=== PATIENT | female | born 1985 | race Hispanic/Latino ===

== ENCOUNTER 2017-02-05 17:15 | Inpatient (IN) | payer OTHER ==
[2017-02-13] MEDS ORDERED: Midazolam HCl 2 mg/2 ml Vial ONE ×2 (07:59→10:03)
[2017-02-13] MEDS ORDERED: Heparin 5,000 UNITS/ML VIAL ONE (08:00)
[2017-02-13] MEDS ORDERED: CEFAZOLIN/Water 2 GM/20 ML SYRINGE ONE (08:00)
[2017-02-13] MEDS ORDERED: Lidocaine 2% w/Epinephrine 1:200K 20 ML VIAL ONE (08:48)
[2017-02-13] MEDS ORDERED: Bupivacaine PF 0.5% 30 ML VIAL ONE (08:48)
[2017-02-13] MEDS ORDERED: Fentanyl 100 MCG/2 ML VIAL ONE (10:03)
[2017-02-13] MEDS ORDERED: Lidocaine 1% PF 5 ML VIAL ONE (10:30)
[2017-02-13] MEDS ORDERED: Propofol 200 MG/20 ML VIAL ONE (10:30)
[2017-02-13] MEDS ORDERED: Glycopyrrolate 0.2 MG/ML 5 ML SYRINGE ONE (10:30)
[2017-02-13] MEDS ORDERED: diphenhydrAMINE 50 MG/ML VIAL ONE (10:30)
[2017-02-13] MEDS ORDERED: Dexamethasone 20 MG/5 ML VIAL ONE (10:30)
[2017-02-13] MEDS ORDERED: Metoclopramide HCl 10 MG/2 ML VIAL ONE (10:30)
[2017-02-13] MEDS ORDERED: Ondansetron HCl/PF 4 MG/2 ML Vial ONE (10:30)
[2017-02-13] MEDS ORDERED: diphenhydrAMINE 50 MG/ML VIAL IVP PRN ×2 (12:09→13:27)
[2017-02-13] MEDS ORDERED: Ketorolac Tromethamine 30 MG/ML VIAL IVP PRN (12:09)
[2017-02-13] MEDS ORDERED: Zolpidem Tartrate 5 MG TAB PO PRN (12:09)
[2017-02-13] MEDS ORDERED: diphenhydrAMINE 25 MG CAP PO PRN (12:09)
[2017-02-13] MEDS ORDERED: Fentanyl 250 MCG/5 ML VIAL ONE (12:09)
[2017-02-13] MEDS ORDERED: Ondansetron HCl/PF 4 MG/2 ML Vial IVP PRN ×3 (12:09→13:27)
[2017-02-13] MEDS ORDERED: Naloxone HCl 0.4 mg/ml Vial IV PRN (12:09)
[2017-02-13] MEDS ORDERED: Promethazine HCl 25 MG/ML VIAL SLOW IVP PRN (12:09)
[2017-02-13] MEDS ORDERED: diphenhydrAMINE 50 MG/ML VIAL IM PRN (12:09)
[2017-02-13] MEDS ORDERED: Fentanyl 5000 MCG/250 ML CADD IVPB PRN (12:09)
[2017-02-13] MEDS ORDERED: Promethazine HCl 25 MG/ML VIAL IM PRN ×3 (12:09→13:27)
[2017-02-13] MEDS ORDERED: Communication Order-Pharmacy FS SCH (12:15)
[2017-02-13] MEDS ORDERED: D5 1/2 NS w/20 mEq KCL 1,000 ML ONE (12:17)
--- NOTE | 2017-02-13 12:20 | EKG ---
Test Reason : PREOP Blood Pressure : / mmHG Vent. Rate : 074 BPM Atrial Rate : 074 BPM P-R Int : 136 ms QRS Dur : 094 ms QT Int : 362 ms P-R-T Axes : 043 -03 014 degrees QTc Int : 401 ms Normal sinus rhythm with sinus arrhythmia Normal ECG No previous ECGs available Confirmed by DR. Garrett GRANT ([id number]) on 02/13/2017 12:19:55 PM Referred By: GABRIELA Confirmed By:DR. Garrett GRANT
[2017-02-13] MEDS ORDERED: Dextrose 5% in Water 1,000 ML IV PRN (13:27)
[2017-02-13] MEDS ORDERED: Hydrocodone-Acetamin 15 ML UDCUP PO PRN (13:27)
[2017-02-13] MEDS ORDERED: Dextrose 50% Abboject 50 ML SYRINGE SLOW IVP PRN (13:27)
[2017-02-13] MEDS ORDERED: hydrALAZINE 20 MG/ML VIAL SLOW IVP PRN (13:27)
[2017-02-13] MEDS ORDERED: Acetaminophen 1,000 MG in Premix Bag 1 BAG IVPB SCH (14:00)
[2017-02-13 16:21] VITALS: BMI 36.3
[2017-02-13] MEDS: Acetaminophen 1,000 MG in Premix Bag 1 BAG IVPB SCH (18:10)
[2017-02-13] MEDS: D5 1/2 NS w/20 mEq KCL 1,000 ML IV SCH ×2 (18:16→20:52)
[2017-02-13] MEDS ORDERED: Enoxaparin Sodium 40 MG/0.4 ML SYRINGE SC SCH (21:00)
[2017-02-14] MEDS: Acetaminophen 1,000 MG in Premix Bag 1 BAG IVPB SCH ×2 (00:02→05:13)
--- OUTSIDE RECORDS SUMMARY | 2017-02-14 00:54 | XMS | Clinical Summary ---
:1985 Author Organization [facility] Address [address] [place] [address] Phone Care Team Providers Name Role Phone , Primary Care Provider Unavailable Allergies Not on File Current Medications Not on file Active Problems Not on file Social History Tobacco Use Types Packs/Day Years Used Date Never Assessed Sex Assigned at Date Recorded Not on file Last Filed Vital Signs Not on file Plan of Treatment Not on file Results Not on filefrom Last 3 Months
[2017-02-14] MEDS: D5 1/2 NS w/20 mEq KCL 1,000 ML IV SCH ×2 (05:14→13:47)
[2017-02-14 05:32] LABS: #Lymphocytes 1.4 thou/uL (1.20-3.40); #Monocytes 0.6 thou/uL (0.11-0.59); #Neutrophils 6.3 thou/uL (1.40-6.50); %Basophils 0.3 % (0.0-1.0); %Eosinophils 0.1 % (0.0-10.0); %Lymphocytes 16.4 % (21.0-51.0); %Monocytes 6.8 % (0.0-10.0); Red Blood Cell (RBC) Count 4.94 mill/uL (4.20-5.40); White Blood Cell (WBC) Count 8.3 thou/uL (4.8-10.8)
[2017-02-14 05:54] LABS: Anion Gap 10 mmol/L (10-20); BUN (Urea Nitrogen) 7 mg/dL (7.0-18.7); Calc. Creatinine Clearance 161 mL/min (70-130); Calcium 9.4 mg/dL (7.8-10.44); Carbon Dioxide 26 mmol/L (22-29); Chloride 106 mmol/L (98-107); Estimated GFR-MDRD Greater than 90
[2017-02-14] MEDS ORDERED: Pantoprazole 40 MG VIAL IVP SCH (09:00)
--- NOTE | 2017-02-14 10:01 | RAD ---
LIMITED UPPER GI WITH 15 ML GASTROGRAFIN: Date: 02/14/17 FINDINGS: Recent vertical sleeve gastrectomy. FINDINGS: There is prompt passage of contrast from the esophagus into the stomach and duodenum. No contrast ex travasation is seen. IMPRESSION: No evidence of obstruction or leak. POS: [facility]
[2017-02-14 11:11] VITALS: BP 120/84; TEMP 98.4
[2017-02-14] MEDS ORDERED: Ondansetron ODT 4 MG TAB PO PRN (14:20)
--- NOTE | 2017-02-17 13:13 | OP ---
DATE OF PROCEDURE: 02/13/2017 PREOPERATIVE DIAGNOSIS: Morbid obesity with a BMI of 37. POSTOPERATIVE DIAGNOSIS: Morbid obesity with a BMI of 37. PROCEDURES PERFORMED: 1. Laparoscopic sleeve gastrectomy. 2. Esophagogastroduodenoscopy with [place] staple line reinforcements and 38 [place] bougie. SURGEON: Dr. Medley. ANESTHESIA: General. ESTIMATED BLOOD LOSS: 20 mL COMPLICATIONS: None. SPECIMEN: Stomach. FINDINGS: Normal postoperative esophagogastroduodenoscopy. INDICATION: The patient is a 32-year-old female who presents for weight loss surgery. She has atte nded our preoperative seminar and has had her preoperative education. She understands risks, benefi ts, alternatives to surgery as well as alternatives to weight loss procedures. She gives consent. TECHNIQUE: The patient was taken to the operating room and placed on supine table. After general a nesthetic was obtained, arms and legs were double strapped to bariatric table. Her abdomen were sha kristin, prepped and draped in a sterile fashion. OG tube had been used to decompress the stomach. Lef t subcostal 5-mm Optiview trocar was placed in the usual fashion without injury and High-flow pneumo peritoneum was obtained. Left and right abdominal 12-mm ports and a right subcostal 5-mm port were placed under direct visualization. The patient was placed in reverse Trendelenburg position. Natha nson was brought in through a 5 mm incision made at the xiphoid and used to raise the liver off the GE junction. There is no hiatal hernia. The short gastrics were taken down from a distance of 5 cm proximal to the pylorus all the way up to the angle of His and left cindy of the diaphragm. The pos terior fundus, left cindy and angle of His is completely dissected as are all posterior gastric adhes ions. OG tube was removed and a 38 [place] bougie brought in and its tip left in the antrum of the s tomach. Multiple loads of an [place] stapling device with [place] staple line reinforcements used to f orm the sleeve. The first was fired up at a distance of 6 cm proximal to the pylorus angled up towa rds the incisura. Multiple loads were then fired up along the bougie, and the stomach was completel y transected at the angle of His. The stomach was removed from left abdominal incision. This fasci al defect was closed using GraNee needle and 0 Vicryl tie. EGD scope was passed into the esophagus, stomach to the level of the duodenum without obstruction. There was no stricture at the incisura. There was no air leakage through the staple line. There was no bleeding internally. EGD scope was used to decompress the stomach, was pulled and removed. The Doni was removed under direct vis ualization without bleeding. All port are removed under direct visualization without bleeding. Pne umoperitoneum was let down. Vicryl was used to close the fascial defect from the left abdominal inc isions. All incisions were irrigated and closed using 4-0 Monocryl and Dermabond. The patient was en route to recovery in stable condition. All instrument counts, needle counts, and lap counts were correct.
== END 2017-02-14 15:21 | disposition home or self-care (01) | DRG 621 ==
LOC: SURG A 02-13 07:30 → SJJU 02-13 13:13
PROVIDERS: ADMIT Surgery; ATTEND Surgery
PROC: 0DB64Z3 Excision of Stomach, Percutaneous Endoscopic Approach, Vertical (ICD-10-PCS; principal; 2017-02-13)
DX: E66.01 Morbid (severe) obesity due to excess calories (principal); F41.0 Panic disorder [episodic paroxysmal anxiety]; J45.909 Unspecified asthma, uncomplicated; Z68.37 Body mass index [BMI] 37.0-37.9, adult; Z88.1 Allergy status to other antibiotic agents; Z91.018 Allergy to other foods; Z91.048 Other nonmedicinal substance allergy status
CPT/HCPCS: 36415; 74241; 80048; 85025; 88307; 88312; 93005; 93010; C9113; J0131; J1100; J1200; J1644; J1650; J2001; J2250; J2405; J2550; J2704; J2765; J3010; Q0162; S0020

== ENCOUNTER 2017-02-07 17:03 | Outpatient (CLI) | payer OTHER ==
[2017-02-07 17:50] LABS: #Basophils 0.1 thou/uL (0.0-0.2); #Eosinphils 0.1 thou/uL (0.0-0.7); #Monocytes 0.4 thou/uL (0.11-0.59); #Neutrophils 5.1 thou/uL (1.40-6.50); %Basophils 0.7 % (0.0-1.0); %Eosinophils 1.3 % (0.0-10.0); %Lymphocytes 34.6 % (21.0-51.0); %Monocytes 5.1 % (0.0-10.0); Hematocrit 43.5 % (36.0-47.0); Mean Platelet Volume 7.6 fL (7.4-10.4); Red Blood Cell (RBC) Count 5.06 mill/uL (4.20-5.40); White Blood Cell (WBC) Count 8.7 thou/uL (4.8-10.8)
[2017-02-07 18:16] LABS: ALT (SGPT) 21 U/L (8-55); AST (SGOT) 19 U/L (5-34); Alkaline Phosphatase 73 U/L (40-150); Anion Gap 11 mmol/L (10-20); BUN (Urea Nitrogen) 26 mg/dL (7.0-18.7); Bilirubin, Direct 0.2 mg/dL (0.1-0.3); Bilirubin, Total 0.5 mg/dL (0.2-1.2); Calc. Creatinine Clearance 0 mL/min (70-130); Carbon Dioxide 25 mmol/L (22-29); Chloride 104 mmol/L (98-107); Estimated GFR-MDRD Greater than 90; Globulin 3.5 g/dL (2.4-3.5)
--- NOTE | 2017-02-07 19:33 | RAD ---
CHEST TWO VIEWS: 02/07/17 HISTORY: Preop. COMPARISON: 09/29/14 study. The heart size and mediastinum are within normal limits. The lungs are clear of infiltrates. No sign ificant bony findings. IMPRESSION: No active intrathoracic disease. POS: [facility]
== END 2017-02-07 17:04 | disposition home or self-care (01) ==
LOC: LABBT 17:03
PROVIDERS: ATTEND Surgery
DX: Z01.818 Encounter for other preprocedural examination (principal); E66.01 Morbid (severe) obesity due to excess calories
CPT/HCPCS: 71020; 80053; 80076; 83036; 84703; 85025

== ENCOUNTER 2018-03-25 06:45 | Outpatient (CLI) | payer OTHER ==
--- NOTE | 2018-03-25 09:38 | ULT ---
ABDOMINAL ULTRASOUND: Date: 03-25-18 History: Right upper quadrant abdominal pain and bloating. FINDINGS: The visualized portions of the IVC, abdominal aorta, visualized portions of the pancreas, liver, gall bladder, spleen, and bilateral kidneys demonstrate a normal sonographic appearance. The right kidney measures 10.2 cm in length with the left kidney measuring 9.9 cm in length. Common duct measures 0.3 cm in diameter which is within normal limits. IMPRESSION: Normal abdominal ultrasound examination. No gallbladder calculi are seen. POS: [facility]
== END 2018-03-25 06:46 | disposition home or self-care (01) ==
LOC: BICULT 06:45
PROVIDERS: ATTEND Family Medicine
DX: R10.9 Unspecified abdominal pain (principal)
CPT/HCPCS: 36415; 76700; 80048; 82306; 82607; 82728; 83970; 84425; 85025